=== PATIENT | male | born 1950 | race Caucasian/White ===

== ENCOUNTER → 2017-06-26 | Outpatient (CLI) | payer OTHER ==
[~2017-06-26] MED LIST: ACCUNEB SO1.25 MG/1 INH; ASPIRIN325 PO; ATORVASTATIN CA80 MG PO; BISOPROLOL FUMAR5 MG PO; BUPROPION HCL200 MG PO; CENTRUM SILVER1 EAC2 PO; FISH OIL 1,001000 M2 PO; LIPITOR40 MG PO; LISINOPRIL20 MG PO; LISINOPRIL40 MG PO; NORVASC5 MG PO; PEPCID20 MG PO; PERCOCET 10-321 EACH PO; RISPERIDONE0.5 MG PO; SPIRIVA18 MCG INH; ULTRA-LIGHT RO1 EACH MC; VENTOLIN HFA 1818 GM INH; VITAMIN D1000 UNI1 PO; WELLBUTRIN XL300 MG PO; XARELTO10 MG PO
[2017-06-26 08:19] LABS: CALCIUM 9.9 mg/dL (8.5-10.1); CREATININE 0.9 mg/dL (0.7-1.3); POTASSIUM 4.4 mmol/L (3.5-5.1)
== END ==
LOC: CAT 07:49
PROVIDERS: Family Medicine
DX: R07.9 Chest pain, unspecified (principal); R91.1 Solitary pulmonary nodule

== ENCOUNTER → 2017-09-25 | Outpatient (CLI) | payer OTHER ==
[~2017-09-25] MED LIST changes: +CARDIZEM CD180 MG PO; +MAGIC MOUTHWASH SWISH&SPIT; +TRAZODONE HCL50 MG PO; +VIAGRA100 MG PO; +ZOLOFT100 MG PO; +ZOLOFT50 MG PO
[2017-09-25 14:29] VITALS: BP 106/66; BP 108/62
== END ==
LOC: OPONC 12:38
DX: D64.81 Anemia due to antineoplastic chemotherapy (principal); C34.31 Malignant neoplasm of lower lobe, right bronchus or lung; T45.1X5A Adverse effect of antineoplastic and immunosuppressive drugs, initial encounter
CPT/HCPCS: 91030

== ENCOUNTER 2017-09-29 13:49 | Inpatient (IN) | payer OTHER ==
[~2017-09-29] VITALS: Ht 175.3 cm; Wt 96.6 kg
--- NOTE | ~2017-09-29 | EKG ---
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 : 1950 Requested By: Pepito Arroyo Order Number: [id number] MD: Edilberto Spears Measurements Intervals [place] Rate: 86 P: 43 LA: 158 QRS: -63 QRSD: 141 T: 7 QT: 411 QTc: 492 Interpretive Statements Sinus rhythm RBBB and LAFB Compared to ECG 09/29/2017 13:36:35 Left anterior fascicular block now present Atrial fibrillation no longer present Electronically Signed On 09-30-2017 13:31:47 SHED WORKERS SUPERVISOR by Edilberto Spears [email or web address] <ELECTRONICALLY SIGNED> By: Edilberto Spears MD 09/30/17 1331 1017 1017 Edilberto Spears MD /EPI
--- NOTE | ~2017-09-29 | EKG ---
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
--- NOTE | ~2017-09-29 | EKG ---
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
--- NOTE | ~2017-09-29 | HC ---
[facility] [place] [address] CONSULTATION Name: FER SIFUENTES Room #: 207-P [facility] IN M.R.#: [id number] Admission: 09/29/17 Attend Phys: Pepito Arroyo MD Discharge: 09/30/17 Date of : 48 Report #: [id number] THIS REPORT FOR: //name// CC: Pepito Arroyo DATE OF SERVICE: 09/30/2017 REASON FOR CONSULTATION: AFib with RVR. HISTORY OF PRESENT ILLNESS: The patient is a 66-year-old, diagnosed with small cell lung cancer in June, who is beginning radiation and chemotherapy, also has a history of coronary artery disease status post stent and follows with the aging room operator at [facility]. He came in yesterday for blood transfusion as he has been having low platelets, anemia, and leukopenia. While undergoing his infusion, he started noticing some palpitations and some chest discomfort. He reports that his chest discomfort has been ongoing for a while and he thinks it is related to his radiation as it primarily occurs when he eats food. He was taken to the ER and was found to be in AFib with rapid ventricular response and started on diltiazem drip. He converted to sinus rhythm on his own and is currently in normal rhythm. He currently denies any chest pain. He denies palpitations. He denies PND or orthopnea. He denies presyncope or syncope. PAST MEDICAL HISTORY: 1. Coronary artery disease, status post stents x 2. 2. Hypertension. 3. Hyperlipidemia. 4. Small cell lung cancer with chemo and radiation. 5. Esophagitis. 6. COPD. 7. Obstructive sleep apnea. SOCIAL HISTORY: Quit smoking. FAMILY HISTORY: Noncontributory. ALLERGIES: INCLUDE MORPHINE. HOME MEDICATIONS: Include bupropion, Viagra, Zoloft, Percocet, trazodone, Magic Mouthwash, amlodipine, atorvastatin, and lisinopril. REVIEW OF SYSTEMS: Twelve-point review of systems. GENERAL: No fevers or chills. HEENT: No blurred vision. CARDIOVASCULAR: As above. PULMONARY: He does have some cough and shortness of breath. He has quit smoking. [facility] [address] [place] [address] CONSULTATION Name: FER SIFUENTES Room #: 207-P [facility] IN M.R.#: [id number] Admission: 09/29/17 Attend Phys: Pepito Arroyo MD Discharge: 09/30/17 Date of : 48 Report #: [id number] GASTROINTESTINAL: Difficulty swallowing foods. GENITOURINARY: No dysuria. MUSCULOSKELETAL: No myalgias or arthralgias. ENDOCRINE: No heat or cold intolerance. NEUROLOGIC: No focal weakness. PHYSICAL EXAMINATION: VITAL SIGNS: Temperature is 36.6, pulse 85, respiration 18, blood pressure 99/69, sats 100%. GENERAL: He is in no acute distress. HEENT: Sclerae anicteric. Oropharynx is clear. NECK: Supple with no thyromegaly. HEART: Regular rate and rhythm with no murmurs, rubs, gallops. LUNGS: Clear to auscultation bilaterally with some mild expiratory wheezes. ABDOMEN: Soft, nontender, nondistended. EXTREMITIES: There is no clubbing, cyanosis, or edema. NEUROLOGICAL: Cranial nerves 2-12 are intact. LABORATORY DATA: White count is 0.8, hemoglobin 8, platelets 60. INR 1.1. Chemistry: Sodium 136, potassium 3.9, BUN 23, creatinine 1.1. Troponin negative x 1. 12-lead EKG, I reviewed, shows atrial fibrillation with right bundle branch block. Telemetry shows sinus rhythm. ASSESSMENT: 1. Paroxysmal atrial fibrillation with rapid ventricular response. 2. Coronary artery disease. 3. Small cell lung cancer. 4. Anemia. 5. Thrombocytopenia. 6. Leukopenia. 7. Chronic obstructive pulmonary disease. 8. Obstructive sleep apnea. 9. Esophagitis. PLAN: In summary, the patient is a 66-year-old with history of coronary artery disease and lung cancer with new onset atrial fibrillation. This is likely due to his lung cancer and recent chemo and radiation and COPD. He is back to normal rhythm. I would recommend starting him on diltiazem orally and discharging him on this. Given his severe thrombocytopenia, I would avoid aspirin and anticoagulation until this has resolved and this can be readdressed by his primary aging room operator as an outpatient. I think the patient is stable for discharge home. His chest pain sounds to be noncardiac in nature and perhaps he [address] [address] CONSULTATION Name: FER SIFUENTES Room #: 207-P DIS IN M.R.#: [id number] Admission: 09/29/17 Attend Phys: Pepito Arroyo MD Discharge: 09/30/17 Date of : 48 Report #: [id number] needs to see his oncologist to evaluate for causes of his esophagitis and possible treatments. The patient is okay for discharge home today. <ELECTRONICALLY SIGNED> By: Edilberto Spears MD 10/13/17 1750 1012 [id number] Edilberto Spears MD /nt
[~2017-09-29 13:49] MED LIST changes: -CARDIZEM CD180 MG PO
[2017-09-29 13:51] VITALS: BP 117/68
[2017-09-29 14:27] LABS: HEMATOCRIT 22.3 % (42.0-52.0); MCH 32.4 pg (26.0-34.0); MCHC 35.9 g/dL (28.0-37.0); MCV 90.1 fL (80.0-100.0); PLATELET COUNT 60 thou/uL (150-400); RBC 2.47 mil/uL (4.50-6.00); RDW 15.4 % (10.5-14.5)
[2017-09-29 14:30] LABS: WBC 0.8 thou/uL (4.0-11.0)
[2017-09-29 14:40] LABS: ANION GAP 8 mmol/L (7-16); BUN 27 mg/dL (7-18); CALCIUM 9.1 mg/dL (8.5-10.1); CHLORIDE 98 mmol/L (98-107); CO2 26 mmol/L (21-32); CREATININE 1.1 mg/dL (0.7-1.3); GLUCOSE 139 mg/dL (74-106); POTASSIUM 3.3 mmol/L (3.5-5.1); SODIUM 132 mmol/L (136-145)
[2017-09-29 14:48] LABS: TROPONIN-I < 0.04 ng/mL (<0.06)
[2017-09-29 14:58] LABS: ABSOLUTE NEUTROPHILS 0.2 thou/uL (1.4-8.2); ATYPICAL LYMPHS 14 %; NUCLEATED RBCS 4 /100WBC
[2017-09-29 14:59] LABS: ANISOCYTOSIS 1+
[2017-09-29 15:00] LABS: BURR CELLS OCCASIONAL; LARGE PLATELETS FEW; POLYCHROMASIA SLIGHT
[2017-09-29 16:09] LABS: APTT 22.7 Seconds (24.5-32.8); INR 1.1; PROTIME 10.7 Seconds (9.3-11.4)
[2017-09-29 16:43] VITALS: BP 106/55
[2017-09-29 17:01] VITALS: BP 90/64
[2017-09-29 17:36] VITALS: BP 91/56
[2017-09-29 19:50] VITALS: BP 98/57
[2017-09-30 04:50] VITALS: BP 92/51
[2017-09-30 05:00] LABS: CALCIUM 8.9 mg/dL (8.5-10.1); CREATININE 1.1 mg/dL (0.7-1.3); POTASSIUM 3.9 mmol/L (3.5-5.1)
[2017-09-30 08:54] VITALS: BP 99/69
[2017-09-30] MEDS ORDERED: CARDIZEM CD180 MG PO (09:47)
[2017-09-30 11:32] VITALS: BP 89/43
[2017-09-30 15:19] VITALS: BP 113/60
[2017-09-30 15:51] VITALS: BP 113/60
== END 2017-09-30 17:08 | disposition home or self-care (01) | DRG 309 ==
LOC: ER 13:49 → EROBS 15:32 → 2N 15:32
PROVIDERS: Emergency Medicine; Family Medicine
DX: I48.0 Paroxysmal atrial fibrillation (principal); N17.9 Acute kidney failure, unspecified; C34.90 Malignant neoplasm of unspecified part of unspecified bronchus or lung; I10 Essential (primary) hypertension; E78.5 Hyperlipidemia, unspecified; F32.9 Major depressive disorder, single episode, unspecified; E78.00 Pure hypercholesterolemia, unspecified; J44.9 Chronic obstructive pulmonary disease, unspecified; D72.819 Decreased white blood cell count, unspecified; G47.33 Obstructive sleep apnea (adult) (pediatric); D64.9 Anemia, unspecified; D69.6 Thrombocytopenia, unspecified; K20.9 Esophagitis, unspecified; Z96.659 Presence of unspecified artificial knee joint; I25.2 Old myocardial infarction; Z88.6 Allergy status to analgesic agent; Z95.5 Presence of coronary angioplasty implant and graft; Z87.891 Personal history of nicotine dependence
CPT/HCPCS: 10081; 91030

== ENCOUNTER → 2017-09-29 | Outpatient (CLI) | payer OTHER ==
[~2017-09-29] MED LIST changes: -ZOLOFT100 MG PO
--- NOTE | ~2017-09-29 | EKG ---
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
[2017-09-29 11:15] VITALS: BP 798/61; BP 88/65
== END ==
LOC: OPONC 06:30
DX: C34.31 Malignant neoplasm of lower lobe, right bronchus or lung (principal)
CPT/HCPCS: 91030

== ENCOUNTER 2018-01-30 09:53 | Inpatient (IN) | payer OTHER ==
[~2018-01-30] VITALS: Ht 175.3 cm; Wt 88.0 kg
--- NOTE | ~2018-01-30 | EKG ---
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: AJAY : 1950 Requested By: Mari Rabago Order Number: [id number] MD: Gui Soto Measurements Intervals [place] Rate: 79 P: 19 MS: 166 QRS: -72 QRSD: 132 T: 5 QT: 403 QTc: 463 Interpretive Statements Sinus rhythm Right bundle branch block Inferior infarct, old Compared to ECG 09/30/2017 10:17:56 Myocardial infarct finding now present Left anterior fascicular block no longer present Electronically Signed On 01-30-2018 17:25:51 CDT by Gui Soto [email or web address] <ELECTRONICALLY SIGNED> By: Gui Soto MD 01/30/18 1672 1206 1206 Gui Soto MD /[facility]
[~2018-01-30 09:53] MED LIST changes: +CARDIZEM CD180 MG PO
[2018-01-30 10:06] VITALS: BP 105/70
[2018-01-30 10:47] LABS: ABSOLUTE NEUTROPHILS 3.8 thou/uL (1.4-8.2); BASOPHILS 0.5 % (0.0-2.0); EOSINOPHILS 1.6 % (0.0-3.0); HEMATOCRIT 35.5 % (42.0-52.0); HEMOGLOBIN 12.8 gm/dL (14.0-18.0); LYMPHOCYTES 9.3 % (24.0-44.0); MCH 33.5 pg (26.0-34.0); MCHC 35.9 g/dL (28.0-37.0); MCV 93.2 fL (80.0-100.0); MONOCYTES 9.6 % (1.0-8.0); RBC 3.81 mil/uL (4.50-6.00); RDW 14.4 % (10.5-14.5); WBC 5.7 thou/uL (4.0-11.0)
[2018-01-30 10:53] LABS: CALCIUM 9.6 mg/dL (8.5-10.1); CREATININE 1.4 mg/dL (0.7-1.3); POTASSIUM 4.4 mmol/L (3.5-5.1)
[2018-01-30 13:03] LABS: PLATELET COUNT 100 thou/uL (150-400)
[2018-01-30 16:25] VITALS: BP 127/67
[2018-01-30 17:23] VITALS: BP 127/65
[2018-01-30 18:06] VITALS: BP 133/70
[2018-01-30 22:06] VITALS: BP 115/64
[2018-01-31 03:43] VITALS: BP 92/44
[2018-01-31 08:00] VITALS: BP 117/71
[2018-01-31 16:00] VITALS: BP 124/70
[2018-01-31 19:00] VITALS: BP 115/65
[2018-02-01 03:12] VITALS: BP 114/68
[2018-02-01 15:55] VITALS: BP 120/68
[2018-02-01 19:54] VITALS: BP 122/54
[2018-02-02] MEDS ORDERED: ZOLOFT100 MG PO (07:49)
[2018-02-02 08:15] VITALS: BP 135/85
[2018-02-02 08:15] LABS: CALCIUM 7.9 mg/dL (8.5-10.1); CREATININE 0.9 mg/dL (0.7-1.3); POTASSIUM 3.5 mmol/L (3.5-5.1)
[2018-02-02 10:01] VITALS: BP 135/85
== END 2018-02-02 10:35 | disposition home or self-care (01) | DRG 684 ==
LOC: ER 09:53 → 4E 12:17 → EROBS 12:17 → 4E 17:21 → SICU 02-01 16:07
PROVIDERS: Emergency Medicine; Family Medicine
DX: N17.9 Acute kidney failure, unspecified (principal); F32.9 Major depressive disorder, single episode, unspecified; I48.91 Unspecified atrial fibrillation; E78.00 Pure hypercholesterolemia, unspecified; J44.9 Chronic obstructive pulmonary disease, unspecified; I10 Essential (primary) hypertension; Z95.5 Presence of coronary angioplasty implant and graft; I25.2 Old myocardial infarction; Z88.6 Allergy status to analgesic agent; Z87.891 Personal history of nicotine dependence; Z85.118 Personal history of other malignant neoplasm of bronchus and lung
CPT/HCPCS: 10183; 15002